=== PATIENT | female | born 1970 | race Two or more races ===

== ENCOUNTER 2022-03-16 08:00 | Outpatient (CLI) | payer OTHER | END 2022-03-16 08:05 | disposition home or self-care (01) | LOC: PPH VACUNA 08:00 | PROVIDERS: ATTEND Emergency Medicine Pediatric Emergency Medicine | DX: Z23 Encounter for immunization (principal) ==

== ENCOUNTER 2022-09-13 07:27 | Emergency (ER) | payer OTHER ==
[~2022-09-13] VITALS: Ht 170.2 cm; Wt 62.6 kg
[2022-09-13] MEDS ORDERED: METFORMIN HCL500 M3 (08:04)
[2022-09-13] MEDS ORDERED: ATORVASTATIN CA10 MG (08:04)
== END 2022-09-13 13:08 | disposition home or self-care (01) ==
LOC: ER 07:27
DX: N39.0 Urinary tract infection, site not specified (principal); E11.65 Type 2 diabetes mellitus with hyperglycemia; Z79.84 Long term (current) use of oral hypoglycemic drugs; Z20.822 Contact with and (suspected) exposure to COVID-19; Z88.5 Allergy status to narcotic agent; Z88.8 Allergy status to other drugs, medicaments and biological substances

== ENCOUNTER 2022-12-06 06:16 | Emergency (ER) | payer OTHER ==
[~2022-12-06] VITALS: Ht 170.2 cm; Wt 67.1 kg
[~2022-12-06 06:16] MED LIST: ATORVASTATIN CA10 MG; METFORMIN HCL500 M3
[2022-12-06] MEDS ORDERED: IBU800 MG PO (16:29)
== END 2022-12-06 16:32 | disposition home or self-care (01) ==
LOC: ER 06:16
DX: R51.9 Headache, unspecified (principal); E11.9 Type 2 diabetes mellitus without complications; Z79.84 Long term (current) use of oral hypoglycemic drugs; F32.A Depression, unspecified; Z87.09 Personal history of other diseases of the respiratory system; Z88.8 Allergy status to other drugs, medicaments and biological substances

== ENCOUNTER 2025-01-16 11:14 | Emergency (ER) | payer OTHER ==
[~2025-01-16] VITALS: Ht 170.2 cm; Wt 68.0 kg
[~2025-01-16 11:14] MED LIST changes: +IBU800 MG PO
[2025-01-16] MEDS ORDERED: INSULINA (11:40)
[2025-01-16 11:42] VITALS: BP 126/83; O2SAT 98
[2025-01-16] MEDS ORDERED: 0.9 % SODIUM CHLORIDE 1,000 ML IV STA (12:06)
[2025-01-16] MEDS ORDERED: INSULIN REGULAR, HUMAN 1,000 UNIT/10 ML UNITS IV ONE (12:15)
[2025-01-16 13:05] LABS: BASO % 0.6 % (0.1-1.2); EOS # 0.11 (0.04-0.54); EOS % 1.5 % (0.7-7.0); LYMPH # 2.43 (1.18-3.74); LYMPH % 33.7 % (19.3-53.1); MEAN PLATELET VOLUME 9.10 fl (9.4-12.4); MONO # 0.34 (0.24-0.82); MONO % 4.7 % (4.7-12.5); NEUT # 4.27 (1.56-6.13); NEUT % 59.2 % (34.0-71.1); RED CELL DISTRIBUTION WIDTH 13.2 % (11.6-14.4)
[2025-01-16 13:50] LABS: BUN CREA RATIO 22.0 (7.0-25.0); CREATININE SERUM 1.08 mg/dL (0.55-1.02); GFR 52.87
[2025-01-16 13:52] LABS: URINE APPEARANCE Clear; URINE BILIRRUBIN Negative (NEGATIVE); URINE BLOOD NHT; URINE COLOR Yellow; URINE KETONE Negative (NEGATIVE); URINE LEUKOCYTE Small; URINE NITRATE Negative; URINE PROTEIN Negative (NEGATIVE); URINE UROBILINOGEN 0.2 E.U./dl
[2025-01-16 13:56] LABS: URINE BACTERIA 395.8 uL (0.0-1933); URINE EPITHELIAL CELLS 9.3 uL (0.0-38.8); URINE RBC 7.1 uL (0.0-20.8); URINE WBC 126.6 uL (0.0-23.2)
[2025-01-16 14:01] LABS: URINE CAST 0.00 uL (0.0-1.40); URINE GLUCOSE >=1000 MG/DL (NEGATIVE)
[2025-01-16 14:03] LABS: OSMOLALITY SERUM 301.0 MOSM/KG (275-295)
[2025-01-16 14:05] LABS: GLUCOSE FASTING 545.0 mg/dL (65-100)
[2025-01-16 14:10] LABS: ABG PH 7.380 (7.35-7.45); ABG PO2 98.9 mmHg (80-100); BICARBONATE 22.2 mmol/l (23-25)
[2025-01-16 14:11] LABS: o2 21 %
== END 2025-01-16 14:58 | disposition home or self-care (01) ==
LOC: ER 11:14
PROVIDERS: Emergency Medicine
DX: E11.65 Type 2 diabetes mellitus with hyperglycemia (principal); Z79.4 Long term (current) use of insulin; Z88.8 Allergy status to other drugs, medicaments and biological substances

== ENCOUNTER 2025-01-28 08:37 | Outpatient (CLI) | payer OTHER ==
[~2025-01-28 08:37] MED LIST changes: +INSULINA
== END 2025-01-28 08:39 | disposition home or self-care (01) ==
LOC: MAMO-SONO 08:37
PROVIDERS: ATTEND Obstetrics & Gynecology
DX: N63.10 Unspecified lump in the right breast, unspecified quadrant (principal); N63.20 Unspecified lump in the left breast, unspecified quadrant